=== PATIENT | male | born 1975 | race Caucasian/White ===

== ENCOUNTER 2025-02-05 20:51 | Emergency (ER) | payer OTHER ==
[2025-02-05 21:06] VITALS: RESP 18; TEMP 97.5; BMI 24.7
[2025-02-05 23:41] LABS: ABSOLUTE IMMATURE GRANULOCYTES 0.03 x10^3/uL (0.0-0.031); BASOPHILS # 0.02 x10^3/uL (0.01-0.08); EOSINOPHIL % 1.3 % (0.8-7.0); EOSINOPHILS # 0.11 x10^3/uL (0.04-0.54); HEMATOCRIT 37.1 % (40.1-51.0); HEMOGLOBIN 12.4 g/dL (13.7-17.5); MCHC 33.4 g/dl (32.3-36.5); MEAN CELL VOLUME 83.4 fl (79.0-92.2); MEAN PLT VOLUME 9.5 fl (9.4-12.4); MONOCYTE # 0.81 x10^3/uL (0.30-0.82); MONOCYTE % 9.9 % (5.3-12.2); PLATELET COUNT 270 x10^3/uL (163-337); RDW 13.9 % (12.1-15.9)
[2025-02-05 23:49] LABS: INR 1.28 (0.83-1.09); PROTHROMBIN TIME (PATIENT) 13.9 SEC (9.7-13.0)
[2025-02-05 23:52] LABS: ACTIVATED PTT 30.4 SECONDS (25.2-36.5)
[2025-02-06 00:06] LABS: POTASSIUM 4.2 mmol/L (3.5-5.1)
[2025-02-06 00:08] LABS: CALCIUM 9.5 mg/dL (8.5-10.1)
[2025-02-06 00:09] LABS: ALBUMIN 3.8 g/dl (3.4-5.0); BLOOD UREA NITROGEN 38.6 mg/dL (7-18)
[2025-02-06 00:12] LABS: CREATININE 1.6 mg/dL (0.55-1.3)
[2025-02-06 00:13] LABS: BILIRUBIN,TOTAL 0.5 mg/dL (0.2-1)
[2025-02-06] MEDS: SODIUM CHLORIDE 1,000 ML IV STA ×2 (00:41→00:42)
[2025-02-06 00:47] VITALS: BP 99/64; PULSE 56
[2025-02-06 02:24] LABS: POTASSIUM 3.8 mmol/L (3.5-5.1)
[2025-02-06 02:26] LABS: CALCIUM 8.2 mg/dL (8.5-10.1)
[2025-02-06 02:29] LABS: CREATININE 1.2 mg/dL (0.55-1.3)
[2025-02-06 02:31] LABS: BILIRUBIN,TOTAL 0.4 mg/dL (0.2-1); TOT PROT 5.5 g/dl (6.4-8.2)
== END 2025-02-06 06:16 | disposition home or self-care (01) ==
LOC: JER 20:51
PROC: 3E0337Z Introduction of Electrolytic and Water Balance Substance into Peripheral Vein, Percutaneous Approach (ICD-10-PCS; principal; 2025-02-06)
DX: S02.2XXA Fracture of nasal bones, initial encounter for closed fracture (principal); Y04.2XXA Assault by strike against or bumped into by another person, initial encounter
CPT/HCPCS: 36415; 70450-TC; 70486-TC; 71046-TC-FY; 80053; 85025; 85610; 85730; 86850; 86900; 86901; 99285-25